=== PATIENT | male | born 1990 | race African-American/Black ===

== ENCOUNTER 2018-01-08 16:56 | Emergency (ER) | payer OTHER ==
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
[2018-01-08 17:37] VITALS: TEMP 98.9; BMI 20.3
[2018-01-08 17:51] LABS: BASO % 0.6 % (0-2.0); EOS % 1.1 % (0-4.5); HEMATOCRIT 40.5 % (35.4-49); HEMOGLOBIN 12.9 GM/dL (11.7-16.9); LYMPH % 11.4 % (8-40); MCH 22.3 pg (25.7-33.7); MCHC 31.8 g/dl (32.0-35.9); MEAN CELL VOLUME 70.1 fl (80-96); MEAN PLT VOLUME 8.6 fl (7.5-11.1); MONO % 7.2 % (3.8-10.2); NEUT % 79.7 % (42.8-82.8); RBC 5.78 M/mm3 (4.00-5.60); RDW 15.2 % (11.9-15.9); WHITE BLOOD COUNT 9.2 K/mm3 (4.0-10.0)
[2018-01-08 18:08] LABS: URINE APPEARANCE CLOUDY; URINE BILIRUBIN NEGATIVE (<2.0 mg/dL); URINE BLOOD NEGATIVE (NEGATIVE); URINE COLOR AMBER; URINE GLUCOSE (UA) NEGATIVE (NEGATIVE); URINE KETONE TRACE (NEGATIVE); URINE NITRITE NEGATIVE (NEGATIVE); URINE PROTEIN NEGATIVE (NEGATIVE); URINE UROBILINOGEN 4.0 E.U/dl mg/dL (0.2-1.0)
[2018-01-08 18:15] LABS: URINE LEUK ESTERASE 2+ (NEGATIVE)
[2018-01-08 18:16] LABS: EPI CELLS RARE /HPF (FEW); URINE BACTERIA MANY /hpf (NONE SEEN); URINE HYALINE CAST 2 /lpf; URINE MUCUS MODERATE
[2018-01-08 18:52] LABS: ALBUMIN 3.1 g/dl (3.4-5.0); ANION GAP 8 (8-16); BILIRUBIN,TOTAL 0.5 mg/dL (0.2-1.0); BLOOD UREA NITROGEN 9 mg/dL (7-18); CALCIUM 9.7 mg/dL (8.5-10.1); CHLORIDE 101 mmol/L (98-107); CO2 31 mmol/L (21-32); CREATININE 0.6 mg/dL (0.7-1.3); GLUCOSE,RANDOM 124 mg/dL (74-106); POTASSIUM 3.9 mmol/L (3.5-5.1); SGOT/AST 22 U/L (15-37); SGPT/ALT 18 U/L (12-78); SODIUM 140 mmol/L (136-145); TOT PROT 7.3 g/dl (6.4-8.2)
[2018-01-08 18:53] LABS: ALK PHOS 91 U/L (45-117)
[2018-01-08 19:23] LABS: PLATELET COUNT 344 K/MM3 (134-434); PLATELET ESTIMATE ADEQUATE
[2018-01-08] MEDS ORDERED: ONDANSETRON 4 MG/2 ML VIAL IVPUSH ONE (19:25)
[2018-01-08] MEDS ORDERED: SODIUM CHLORIDE 0.9% 1000 ML INFUS.BAG IV ONE (19:25)
[2018-01-08] MEDS ORDERED: ONDANSETRON 4 MG/2 ML VIAL ONE (19:37)
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
--- NOTE | 2018-01-08 20:21 | PDOC ---
*Physical Exam - Vital Signs Last Vital Signs Temp Pulse Resp BP Pulse Ox 98.9 F 103 H 18 114/74 98 01/08/18 17:00 01/08/18 17:00 01/08/18 17:00 01/08/18 17:00 01/08/18 18:19 - Physical Exam General Appearance: Yes: Nourished, Appropriately Dressed Neck: positive: Trachea midline, Supple Respiratory/Chest: positive: Lungs Clear Cardiovascular: positive: S1, S2 Vascular Pulses: Dorsalis-Pedis (R): 2+, Doralis-Pedis (L): 2+ Extremity: positive: Other (R medial patellar swelling, warm, no appreciable erythema) Neurologic: positive: Fully Oriented, Alert ED Treatment Course - LABORATORY CBC & Chemistry Diagram: 01/08/18 17:40 01/08/18 18:11 - ADDITIONAL ORDERS Additional order review: Laboratory Results 01/08/18 01/08/18 01/08/18 18:11 18:10 17:43 Sodium 140 Potassium 3.9 Chloride 101 Carbon Dioxide 31 Anion Gap 8 BUN 9 Creatinine 0.6 L Creat Clearance w eGFR > 60 Random Glucose 124 H Calcium 9.7 Total Bilirubin 0.5 AST 22 ALT 18 Alkaline Phosphatase 91 C-Reactive Protein Cancelled Total Protein 7.3 Albumin 3.1 L Urine Color Jyoti Urine Appearance Cloudy Urine pH 7.0 Ur Specific [place] 1.021 Urine Protein Negative Urine Glucose (UA) Negative Urine Ketones Trace H Urine Blood Negative Urine Nitrite Negative Urine Bilirubin Negative Urine Urobilinogen 4.0 e.u/dl Ur Leukocyte Esterase 2+ H Urine WBC (Auto) 82 Urine RBC (Auto) 5 Ur Epithelial Cells Rare Urine Bacteria Many Hyaline Casts 2 Urine Mucus Moderate 01/08/18 17:40 Sodium Cancelled Potassium Cancelled Chloride Cancelled Carbon Dioxide Cancelled Anion Gap Cancelled BUN Cancelled Creatinine Cancelled Creat Clearance w eGFR Cancelled Random Glucose Cancelled Calcium Cancelled Total Bilirubin Cancelled AST Cancelled ALT Cancelled Alkaline Phosphatase Cancelled C-Reactive Protein Total Protein Cancelled Albumin Cancelled Urine Color Urine Appearance Urine pH Ur Specific [place] Urine Protein Urine Glucose (UA) Urine Ketones Urine Blood Urine Nitrite Urine Bilirubin Urine Urobilinogen Ur Leukocyte Esterase Urine WBC (Auto) Urine RBC (Auto) Ur Epithelial Cells Urine Bacteria Hyaline Casts Urine Mucus 01/08/18 17:40 RBC 5.78 H MCV 70.1 L MCHC 31.8 L RDW 15.2 MPV 8.6 Neutrophils % 79.7 Lymphocytes % 11.4 Monocytes % 7.2 Eosinophils % 1.1 Basophils % 0.6 - Medications Given in the ED: ED Medications Discontinued Medications Generic Name Dose Route Start Last Admin Trade Name Brettq PRN Reason Stop Dose Admin Ondansetron HCl 4 mg 01/08/18 19:25 01/08/18 20:02 Zofran Injection IVPUSH 01/08/18 19:26 4 mg ONCE ONE Administration Sodium Chloride 1,000 ml 01/08/18 19:25 01/08/18 20:02 Normal Saline - IV 01/08/18 19:26 1,000 ml ONCE ONE Administration Medical Decision Making - Medical Decision Making 01/08/18 20:21 Patient signed out by Dr. Wilkerson (Resident) under the care of Dr. Rico ( Attending) 27 year old male presents with R knee pain. XR shows no fluid collection; prominent soft tissue --> less likely, will plan for D/C w/ PO Abx pending Doppler r/o clot. 01/08/18 20:25 UA shows Leukocyte Esterase (2+) and WBC (82) -- patient unable to endorse symptoms 2/2 to paraplegia -- cross coverage of UTI with cellulitis abx 01/08/18 21:49 Patient resting comfortably. Negative Doppler. Will discharge home with Bactrim + Keflex following OTD in ED. Patient counseled on POC and discharged with return precautions and PMD follow-up. I discussed the physical exam findings, ancillary test results and final diagnoses with the patient. I answered all of the patient's questions. The patient was satisfied with the care received and felt comfortable with the discharge plan and treatment plan. The patient will return to the Emergency Department with any new, persistent or worsening symptoms. *DC/Admit/Observation/Transfer Diagnosis at time of Disposition: Cellulitis - Discharge Dispostion Disposition: HOME Condition at time of disposition: Good - Prescriptions Prescriptions: Cephalexin Monohydrate [Keflex -] 500 mg PO Q6H #40 capsule Sulfamethoxazole/Trimethoprim [Bactrim Ds Tablet] 2 each PO BID #40 tablet - Referrals Referrals: Truman Poe MD [Primary Care Provider] - Leobardo Caldwell MD [Staff Physician] - - Patient Instructions Additional Instructions: An antibiotic has been called to your pharmacy. Please take the entire prescribed course. Follow up with your primary care doctor in the next 48 hours as well as orthopedic surgery (contact information provided) in the next 2 -3 days. Return to the Emergency Department for any new/worsening/concerning symptoms. - Post Discharge Activity
[2018-01-08 20:49] VITALS: BP 117/73; PULSE 82
[2018-01-08] MEDS ORDERED: SULFAMETHOXAZOLE/TRIMETHOPRIM 800MG/160MG D.S. TABLET PO ONE (21:32)
[2018-01-08] MEDS ORDERED: CEPHALEXIN MONOHYDRATE 500 MG CAPSULE (UD) PO ONE (21:32)
[2018-01-08] MEDS ORDERED: SULFAMETHOXAZOLE/TRIMETHOPRIM 800MG/160MG D.S. TABLET ONE (21:39)
[2018-01-08] MEDS ORDERED: CEPHALEXIN MONOHYDRATE 250 MG CAPSULE (FP) ONE (21:40)
== END 2018-01-09 00:40 | disposition home or self-care (01) ==
LOC: JER 16:56
PROC: 3E033GC Introduction of Other Therapeutic Substance into Peripheral Vein, Percutaneous Approach (ICD-10-PCS; principal; 2018-01-08)
PROC: 3E0337Z Introduction of Electrolytic and Water Balance Substance into Peripheral Vein, Percutaneous Approach (ICD-10-PCS; 2018-01-08)
DX: M25.561 Pain in right knee (principal); G82.20 Paraplegia, unspecified
CPT/HCPCS: 36415; 73562-TC-RT-FY; 80053; 81003; 81015; 85025; 85651; 93971-TC; 99285-25; J7030

== ENCOUNTER 2018-02-10 18:50 | Emergency (ER) | payer OTHER ==
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
[2018-02-10 19:42] VITALS: BP 123/83; PULSE 80; TEMP 97.5; BMI 25.0
[2018-02-10 20:13] LABS: BASO % 1.1 % (0-2.0); EOS % 3.5 % (0-4.5); HEMOGLOBIN 11.6 GM/dL (11.7-16.9); LYMPH % 30.9 % (8-40); MCH 22.7 pg (25.7-33.7); MCHC 32.1 g/dl (32.0-35.9); MEAN CELL VOLUME 70.8 fl (80-96); MEAN PLT VOLUME 8.4 fl (7.5-11.1); MONO % 10.9 % (3.8-10.2); NEUT % 53.6 % (42.8-82.8); PLATELET COUNT 253 K/MM3 (134-434); RBC 5.09 M/mm3 (4.00-5.60); RDW 16.9 % (11.9-15.9); WHITE BLOOD COUNT 4.7 K/mm3 (4.0-10.0)
[2018-02-10 20:49] LABS: ALK PHOS 81 U/L (45-117); ANION GAP 3 (8-16); BILIRUBIN,TOTAL 0.3 mg/dL (0.2-1.0); BLOOD UREA NITROGEN 5 mg/dL (7-18); CHLORIDE 107 mmol/L (98-107); CO2 35 mmol/L (21-32); CREATININE 0.4 mg/dL (0.7-1.3); GLUCOSE,RANDOM 75 mg/dL (74-106); POTASSIUM 3.4 mmol/L (3.5-5.1); SGOT/AST 10 U/L (15-37); SGPT/ALT 8 U/L (12-78); SODIUM 145 mmol/L (136-145); TOT PROT 6.3 g/dl (6.4-8.2)
== END 2018-02-11 01:11 | disposition home or self-care (01) ==
LOC: JER 18:50
DX: B35.3 Tinea pedis (principal); S24.152A Other incomplete lesion at T2-T6 level of thoracic spinal cord, initial encounter; G82.21 Paraplegia, complete; Y24.8XXA Other firearm discharge, undetermined intent, initial encounter; Y93.89 Activity, other specified; Y92.89 Other specified places as the place of occurrence of the external cause; Y99.8 Other external cause status; Z99.3 Dependence on wheelchair
CPT/HCPCS: 36415; 73610-TC-RT-FY; 73630-TC-RT-FY; 80053; 85025; 93971-TC; 99282-25

== ENCOUNTER 2018-02-25 16:36 | Inpatient (IN) | payer OTHER ==
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
[2018-02-25 17:26] LABS: BASO % 0.8 % (0-2.0); EOS % 2.1 % (0-4.5); HEMATOCRIT 40.9 % (35.4-49); HEMOGLOBIN 12.8 GM/dL (11.7-16.9); LYMPH % 27.2 % (8-40); MCH 22.2 pg (25.7-33.7); MCHC 31.2 g/dl (32.0-35.9); MEAN PLT VOLUME 9.3 fl (7.5-11.1); MONO % 7.8 % (3.8-10.2); NEUT % 62.1 % (42.8-82.8); PLATELET COUNT 280 K/MM3 (134-434); RBC 5.76 M/mm3 (4.00-5.60); RDW 18.3 % (11.9-15.9); WHITE BLOOD COUNT 5.8 K/mm3 (4.0-10.0)
[2018-02-25 17:44] LABS: INR 1.11 (0.82-1.09); PROTHROMBIN TIME (PATIENT) 12.5 SEC (9.7-13.0)
[2018-02-25 17:56] LABS: ANION GAP 7 (8-16); BLOOD UREA NITROGEN 4 mg/dL (7-18); CHLORIDE 103 mmol/L (98-107); CO2 33 mmol/L (21-32); GLUCOSE,RANDOM 77 mg/dL (74-106); POTASSIUM 3.3 mmol/L (3.5-5.1); SODIUM 143 mmol/L (136-145)
[2018-02-25 17:59] LABS: ALK PHOS 101 U/L (45-117); BILIRUBIN,TOTAL 1.4 mg/dL (0.2-1.0); CREATININE 0.6 mg/dL (0.7-1.3); SGOT/AST 10 U/L (15-37); SGPT/ALT 10 U/L (12-78); TOT PROT 7.8 g/dl (6.4-8.2)
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
[2018-02-25 19:34] LABS: URINE APPEARANCE CLOUDY; URINE BILIRUBIN NEGATIVE (<2.0 mg/dL); URINE BLOOD NEGATIVE (NEGATIVE); URINE COLOR AMBER; URINE GLUCOSE (UA) NEGATIVE (NEGATIVE); URINE KETONE NEGATIVE (NEGATIVE); URINE NITRITE NEGATIVE (NEGATIVE); URINE PROTEIN NEGATIVE (NEGATIVE)
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
[2018-02-25 19:50] LABS: URINE LEUK ESTERASE 3+ (NEGATIVE)
[2018-02-25 19:56] LABS: EPI CELLS RARE /HPF (FEW); URINE BACTERIA RARE /hpf (NONE SEEN); URINE MUCUS MANY
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
[2018-02-25 21:52] LABS: URINE APPEARANCE SLCLOUDY; URINE BILIRUBIN NEGATIVE (<2.0 mg/dL); URINE BLOOD NEGATIVE (NEGATIVE); URINE COLOR DKYELLOW; URINE GLUCOSE (UA) NEGATIVE (NEGATIVE); URINE KETONE NEGATIVE (NEGATIVE); URINE LEUK ESTERASE 1+ (NEGATIVE); URINE NITRITE POSITIVE (NEGATIVE); URINE PROTEIN NEGATIVE (NEGATIVE)
[2018-02-25 21:55] LABS: URINE MUCUS RARE
[2018-02-25] MEDS: HEPARIN NA (PORCINE) 5,000 UNITS/ML 1ML VIAL SQ SCH (22:16)
[2018-02-25] MEDS ORDERED: POTASSIUM CHLORIDE ORAL LIQUID 20 MEQ/15 ML PO ONE (22:46)
[2018-02-26] MEDS ORDERED: POTASSIUM CHLORIDE ORAL LIQUID 20 MEQ/15 ML ONE (00:01)
[2018-02-26] MEDS: HEPARIN NA (PORCINE) 5,000 UNITS/ML 1ML VIAL SQ SCH ×3 (08:43→21:29)
[2018-02-26 08:59] LABS: EOS % 3.9 % (0-4.5); HEMATOCRIT 36.6 % (35.4-49); HEMOGLOBIN 11.5 GM/dL (11.7-16.9); LYMPH % 32.2 % (8-40); MCH 22.2 pg (25.7-33.7); MCHC 31.3 g/dl (32.0-35.9); MEAN PLT VOLUME 9.2 fl (7.5-11.1); MONO % 10.4 % (3.8-10.2); NEUT % 52.5 % (42.8-82.8); PLATELET COUNT 234 K/MM3 (134-434); RBC 5.16 M/mm3 (4.00-5.60); RDW 17.8 % (11.9-15.9); WHITE BLOOD COUNT 4.4 K/mm3 (4.0-10.0)
[2018-02-26 09:28] LABS: ALBUMIN 3.4 g/dl (3.4-5.0); ANION GAP 8 (8-16); BLOOD UREA NITROGEN 5 mg/dL (7-18); CALCIUM 9.5 mg/dL (8.5-10.1); CHLORIDE 107 mmol/L (98-107); CO2 29 mmol/L (21-32); GLUCOSE,RANDOM 77 mg/dL (74-106); PHOSPHOROUS 3.2 mg/dL (2.5-4.9); POTASSIUM 3.6 mmol/L (3.5-5.1); SGOT/AST 9 U/L (15-37); SGPT/ALT 8 U/L (12-78); SODIUM 144 mmol/L (136-145)
[2018-02-26 09:30] LABS: ALK PHOS 84 U/L (45-117); BILIRUBIN,TOTAL 0.9 mg/dL (0.2-1.0); CREATININE 0.6 mg/dL (0.7-1.3); TOT PROT 6.7 g/dl (6.4-8.2)
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
--- NOTE | 2018-02-26 14:28 | EKG ---
Test Reason : Blood Pressure : / mmHG Vent. Rate : 062 BPM Atrial Rate : 062 BPM P-R Int : 142 ms QRS Dur : 088 ms QT Int : 438 ms P-R-T Axes : 067 018 025 degrees QTc Int : 444 ms POOR DATA QUALITY, INTERPRETATION MAY BE ADVERSELY AFFECTED NORMAL SINUS RHYTHM NORMAL ECG NO PREVIOUS ECGS AVAILABLE Confirmed by JANNETTE WHITE MD ([id number]) on 02/26/2018 2:27:59 PM Referred By: Confirmed By:JANNETTE WHITE MD
[2018-02-26 14:37] LABS: MAGNESIUM 2.3 mg/dL (1.8-2.4)
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
[2018-02-26 17:43] VITALS: BMI 25.0
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
[2018-02-27] MEDS: HEPARIN NA (PORCINE) 5,000 UNITS/ML 1ML VIAL SQ SCH ×3 (05:18→23:08)
--- NOTE | 2018-02-27 11:24 | PN ---
Progress Note, Physician Chief Complaint: positive distress right foot - Current Medication List Current Medications: Active Medications Heparin Sodium (Porcine) (Heparin -) 5,000 unit SQ TID [facility] Last Admin: 02/27/18 05:18 Dose: Not Given - Objective Vital Signs: Vital Signs Temperature 98.3 F 02/27/18 07:00 Pulse Rate 61 02/27/18 07:00 Respiratory Rate 20 02/27/18 07:00 Blood Pressure 147/72 02/27/18 07:00 O2 Sat by Pulse Oximetry (%) 99 02/26/18 21:00 Constitutional: Yes: Mild Distress Eyes: Yes: WNL HENT: Yes: WNL Neck: Yes: WNL Cardiovascular: Yes: WNL Respiratory: Yes: WNL Gastrointestinal: Yes: WNL Genitourinary: Yes: WNL Musculoskeletal: Yes: Muscle Weakness Extremities: Yes: Deformity Edema: No Integumentary: Yes: Erythema, Other Wound/Incision: Yes: Open to air (right toes nectrotic black) Neurological: Yes: Pre-Existing Deficit Psychiatric: Yes: WNL Labs: CBC, BMP 02/26/18 08:46 02/26/18 08:46 INR, PTT INR 1.11 (0.82-1.09) 02/25/18 17:12 Problem List - Problems (1) Electrolyte abnormality Code(s): E87.8 - OTH DISORDERS OF ELECTROLYTE AND FLUID BALANCE, NEC (2) Gangrene of toe Code(s): I96 - GANGRENE, NOT ELSEWHERE CLASSIFIED (3) Paraplegia Code(s): G82.20 - PARAPLEGIA, UNSPECIFIED (4) UTI (urinary tract infection) Code(s): N39.0 - URINARY TRACT INFECTION, SITE NOT SPECIFIED (5) Cellulitis Code(s): L03.90 - CELLULITIS, UNSPECIFIED Assessment/Plan abx per id podiatry and vasc sx eval dvt prophylaxis
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
[2018-02-27] MEDS ORDERED: AMMONIUM LACTATE 12% LOTION 225 GM BOTTLE TP PRN (13:00)
[2018-02-28] MEDS: SODIUM PHOSPHATE/NA BIPHOS 133 ML ENEMA PR ONE ×2 (00:33→00:47)
[2018-02-28 06:08] LABS: SERUM IRON SATURATION 25 % (15-55); TOTAL IRON BINDING CAPACITY 206 ug/dL (250-450); UIBC 155 ug/dL (111-343)
[2018-02-28] MEDS: HEPARIN NA (PORCINE) 5,000 UNITS/ML 1ML VIAL SQ SCH ×3 (06:41→22:26)
--- NOTE | 2018-02-28 10:16 | PN ---
Progress Note, Physician Chief Complaint: NOTES FROM ODIATRY REVIEWED SCHEDULING AMPUTATION RIGHT NECROTIC TOES PATIENT AWAKE ALERT NAD - Current Medication List Current Medications: Active Medications Heparin Sodium (Porcine) (Heparin -) 5,000 unit SQ TID [facility] Last Admin: 02/28/18 06:41 Dose: Not Given Lactic Acid (Lac-Hydrin 12) 1 applic TP BID PRN PRN Reason: xerosis - Objective Vital Signs: Vital Signs Temperature 97.6 F 02/28/18 09:39 Pulse Rate 65 02/28/18 09:39 Respiratory Rate 18 02/28/18 09:39 Blood Pressure 120/68 02/28/18 09:39 O2 Sat by Pulse Oximetry (%) 99 02/27/18 21:00 Constitutional: Yes: No Distress Eyes: Yes: WNL HENT: Yes: WNL Neck: Yes: WNL Cardiovascular: Yes: WNL Respiratory: Yes: WNL Gastrointestinal: Yes: WNL Genitourinary: Yes: WNL Musculoskeletal: Yes: Muscle Weakness Extremities: Yes: Deformity Edema: No Peripheral Pulses WNL: Yes Integumentary: Yes: Other Wound/Incision: Yes: Other (NECROTOC RIGHT TOES) Neurological: Yes: Loss of Sensation, Pre-Existing Deficit, Weakness Psychiatric: Yes: WNL Labs: CBC, BMP 02/26/18 08:46 02/26/18 08:46 INR, PTT INR 1.11 (0.82-1.09) 02/25/18 17:12 Problem List - Problems (1) Electrolyte abnormality Code(s): E87.8 - OTH DISORDERS OF ELECTROLYTE AND FLUID BALANCE, NEC (2) Gangrene of toe Code(s): I96 - GANGRENE, NOT ELSEWHERE CLASSIFIED (3) Paraplegia Code(s): G82.20 - PARAPLEGIA, UNSPECIFIED (4) UTI (urinary tract infection) Code(s): N39.0 - URINARY TRACT INFECTION, SITE NOT SPECIFIED (5) Cellulitis Code(s): L03.90 - CELLULITIS, UNSPECIFIED Assessment/Plan PODIATRY SCHEDULING AMPUTATION PAIN CONTROL MEDICALLY CLEARED FOR AMPUTATION RIGHT5 NECROTIC TOES HEPARIN
--- NOTE | 2018-02-28 10:33 | PN ---
Progress Note (short form) - Note Progress Note: Patient seen in bed. VSS. Awaiting bone scan. +gangarene toes 3,4,5 right, +unimproved, +demarcating, +dry, wbc=4.4 gangarene Will shedule for Saturday AM procedure. Patient cleared from Medicine and Vascular standpoint. Will follow. Awaiting bone scan. crp=0.5, esr wnl
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
--- NOTE | 2018-02-28 16:50 | PN ---
Progress Note (short form) - Note Progress Note: Vascular Surgery Pt seen and examined. Pt with RLE necrotic 4th and 5th toes. Pt with palpable DP pulse. Cleared from a vascular standpoint for podiatry intervention. Osei caal DO
[2018-03-01] MEDS: HEPARIN NA (PORCINE) 5,000 UNITS/ML 1ML VIAL SQ SCH ×3 (06:50→21:40)
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
[2018-03-02] MEDS: HEPARIN NA (PORCINE) 5,000 UNITS/ML 1ML VIAL SQ SCH ×3 (05:37→21:54)
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
[2018-03-03] MEDS: HEPARIN NA (PORCINE) 5,000 UNITS/ML 1ML VIAL SQ SCH ×3 (05:39→21:55)
[2018-03-03 07:28] LABS: BASO % 1.6 % (0-2.0); EOS % 4.2 % (0-4.5); HEMATOCRIT 38.7 % (35.4-49); LYMPH % 36.8 % (8-40); MCH 22.2 pg (25.7-33.7); MEAN CELL VOLUME 71.4 fl (80-96); MEAN PLT VOLUME 9.3 fl (7.5-11.1); MONO % 9.1 % (3.8-10.2); NEUT % 48.3 % (42.8-82.8); PLATELET COUNT 209 K/MM3 (134-434); RBC 5.41 M/mm3 (4.00-5.60); RDW 17.8 % (11.9-15.9); WHITE BLOOD COUNT 4.6 K/mm3 (4.0-10.0)
[2018-03-03 07:40] LABS: ALBUMIN 3.7 g/dl (3.4-5.0); ALK PHOS 77 U/L (45-117); ANION GAP 6 (8-16); BILIRUBIN,TOTAL 0.6 mg/dL (0.2-1.0); BLOOD UREA NITROGEN 9 mg/dL (7-18); CALCIUM 9.1 mg/dL (8.5-10.1); CHLORIDE 104 mmol/L (98-107); CO2 29 mmol/L (21-32); CREATININE 0.6 mg/dL (0.7-1.3); GLUCOSE,RANDOM 72 mg/dL (74-106); MAGNESIUM 2.3 mg/dL (1.8-2.4); PHOSPHOROUS 3.1 mg/dL (2.5-4.9); POTASSIUM 3.4 mmol/L (3.5-5.1); SGOT/AST 9 U/L (15-37); SGPT/ALT 9 U/L (12-78); SODIUM 139 mmol/L (136-145)
--- NOTE | 2018-03-03 11:02 | PN ---
Progress Note, Physician Chief Complaint: NOTES FROM PODIATRY REVIEWED SCHEDULING AMPUTATION RIGHT NECROTIC TOES PATIENT AWAKE ALERT NAD - Current Medication List Current Medications: Active Medications Heparin Sodium (Porcine) (Heparin -) 5,000 unit SQ TID [facility] Last Admin: 03/03/18 05:39 Dose: Not Given Lactic Acid (Lac-Hydrin 12) 1 applic TP BID PRN PRN Reason: xerosis - Objective Vital Signs: Vital Signs Temperature 97.5 F L 03/03/18 09:44 Pulse Rate 62 03/03/18 09:44 Respiratory Rate 20 03/03/18 09:44 Blood Pressure 129/78 03/03/18 09:44 O2 Sat by Pulse Oximetry (%) 99 03/02/18 21:00 Constitutional: Yes: No Distress Eyes: Yes: WNL HENT: Yes: WNL Neck: Yes: WNL Cardiovascular: Yes: WNL Respiratory: Yes: WNL Gastrointestinal: Yes: WNL Genitourinary: Yes: Incontinence Musculoskeletal: Yes: Muscle Weakness Extremities: Yes: Deformity, Other Edema: No Peripheral Pulses WNL: Yes Integumentary: Yes: Other Wound/Incision: Yes: Open to air, Excoriated (NECROTIC TOES) Neurological: Yes: Pre-Existing Deficit ...Motor Strength: RLE Psychiatric: Yes: WNL Labs: CBC, BMP 03/03/18 06:55 03/03/18 06:55 INR, PTT INR 1.11 (0.82-1.09) 02/25/18 17:12 Problem List - Problems (1) Electrolyte abnormality Code(s): E87.8 - OTH DISORDERS OF ELECTROLYTE AND FLUID BALANCE, NEC (2) Gangrene of toe Code(s): I96 - GANGRENE, NOT ELSEWHERE CLASSIFIED (3) Paraplegia Code(s): G82.20 - PARAPLEGIA, UNSPECIFIED (4) UTI (urinary tract infection) Code(s): N39.0 - URINARY TRACT INFECTION, SITE NOT SPECIFIED (5) Cellulitis Code(s): L03.90 - CELLULITIS, UNSPECIFIED Assessment/Plan PODIATRY SCHEDULING AMPUTATION PAIN CONTROL MEDICALLY CLEARED FOR AMPUTATION RIGHT5 NECROTIC TOES HEPARIN IV
[2018-03-03] MEDS ORDERED: POTASSIUM CHLORIDE TABS 10 MEQ TABLET.ER (FP) PO ONE (11:15)
--- NOTE | 2018-03-03 11:29 | PN ---
Progress Note (short form) - Note Progress Note: Patient seen in bed. VSS. Bone scan done. No new complaints. +gangarene toes 3,4,5 right, +unimproved, +demarcating, +dry, Bone scan possible om 5th met head gangarene om? Ordered consent for bedridement of bone and soft tissue with posssible amputation toes 3,4,5 left. Will consider 5th met head resection if appears to be infected intra-op. Patent fully understands all risks benefits and alternatives. Patient had no questions. All previous questions have been answered. Patient agress to proposed procedure. NPO after midnight. Will follow. Read and appreciated Bone scan. Patient cleared by vascular and medicine for intervention.
[2018-03-04] MEDS ORDERED: DEXAMETHASONE SOD PHOSPHATE 4 MG/1 ML VIAL ONE (10:20)
[2018-03-04] MEDS ORDERED: BUPIVACAINE HCL/PF 0.5% (5MG/ML) 10 ML VIAL ONE (10:20)
[2018-03-04] MEDS ORDERED: LIDOCAINE HCL 1%, 10 MG/ML (20ML VIAL) ONE (10:20)
[2018-03-04] MEDS ORDERED: MIDAZOLAM HCL 2 MG/2 ML SINGLE DOSE VIAL ONE ×3 (10:32→11:05)
[2018-03-04] MEDS ORDERED: ceFAZolin SODIUM 1 GM VIAL IVPB ONE ×2 (10:49)
[2018-03-04] MEDS ORDERED: LIDOCAINE HCL 1%, 10 MG/ML (20ML VIAL) NR ONE (10:56)
[2018-03-04] MEDS ORDERED: BUPIVACAINE HCL/PF (5 MG/ML) 30 ML VIAL IJ ONE (10:56)
[2018-03-04] MEDS ORDERED: BACITRACIN 50,000 UNITS VIAL TP ONE (11:15)
[2018-03-04] MEDS ORDERED: BUPIVACAINE HCL/PF 0.5% (5MG/ML) 10 ML VIAL IJ ONE (11:40)
--- NOTE | 2018-03-04 11:51 | OP ---
Operative Note - Note: Operative Date: 03/04/18 Pre-Operative Diagnosis: Gangarent toes 3,4,5 right Operation: debridement bone and soft tissue with amputation 3,4,5 right Findings: gangarene Post-Operative Diagnosis: Same as Pre-op Surgeon: Johnny Valdes Anesthesia: JOHN Specimens Removed: bone and soft tissue Estimated Blood Loss (mls): 10 (ml) Instrument used (Debridements only): scalpel, bone cutter Drains & Tubes with Location: 10/10" plain packing Operative Report Dictated: Yes
[2018-03-04] MEDS ORDERED: ONDANSETRON 4 MG/2 ML VIAL IVPUSH PRN (12:01)
[2018-03-04] MEDS ORDERED: PROMETHAZINE HCL 25 MG/1 ML VIAL IVPB PRN (12:01)
[2018-03-04] MEDS: LACTATED RINGERS SOLUTION 1,000 ML IV SCH (12:20)
[2018-03-04] MEDS: HEPARIN NA (PORCINE) 5,000 UNITS/ML 1ML VIAL SQ SCH ×2 (13:59→22:40)
--- NOTE | 2018-03-04 16:21 | PN ---
Progress Note, Physician Chief Complaint: AWAKE ALERT S/P RIGHT FOOT TOES AMPUTATIONS TOLERATED WELL - Current Medication List Current Medications: Active Medications Fentanyl (Sublimaze Injection -) 25 mcg IVPUSH [id number] PRN PRN Reason: PAIN-PACU ORDER X 4 DOSES ONLY Heparin Sodium (Porcine) (Heparin -) 5,000 unit SQ TID [facility] Last Admin: 03/04/18 13:59 Dose: Not Given Lactated Ringer's (Lactated Ringers Solution) 1,000 mls @ 75 mls/hr IV ASDIR [facility] Ondansetron HCl (Zofran Injection) 4 mg IVPUSH Q6H PRN PRN Reason: NAUSEA AND/OR VOMITING Oxycodone HCl (Roxicodone -) 5 mg PO Q4H PRN PRN Reason: PAIN LEVEL 1-5 Stop: 03/05/18 12:00 Promethazine HCl (Phenergan Injection -) 12.5 mg IVPB Q6H PRN PRN Reason: NAUSEA-FOR RESCUE AFTER 15 MIN - Objective Vital Signs: Vital Signs Temperature 98.1 F 03/04/18 12:40 Pulse Rate 68 03/04/18 13:00 Respiratory Rate 18 03/04/18 13:00 Blood Pressure 114/74 03/04/18 13:00 O2 Sat by Pulse Oximetry (%) 96 03/04/18 13:00 Constitutional: Yes: Mild Distress Eyes: Yes: WNL HENT: Yes: WNL Neck: Yes: WNL Cardiovascular: Yes: WNL Respiratory: Yes: WNL Gastrointestinal: Yes: WNL Genitourinary: Yes: Incontinence Musculoskeletal: Yes: Muscle Weakness Extremities: Yes: Amputation Edema: No Peripheral Pulses WNL: Yes Wound/Incision: Yes: Dressing Dry and Intact Neurological: Yes: Pre-Existing Deficit ...Motor Strength: RLE Labs: CBC, BMP 03/03/18 06:55 03/03/18 06:55 INR, PTT INR 1.11 (0.82-1.09) 02/25/18 17:12 Problem List - Problems (1) Electrolyte abnormality Code(s): E87.8 - OTH DISORDERS OF ELECTROLYTE AND FLUID BALANCE, NEC (2) Gangrene of toe Code(s): I96 - GANGRENE, NOT ELSEWHERE CLASSIFIED (3) Paraplegia Code(s): G82.20 - PARAPLEGIA, UNSPECIFIED (4) UTI (urinary tract infection) Code(s): N39.0 - URINARY TRACT INFECTION, SITE NOT SPECIFIED (5) Cellulitis Code(s): L03.90 - CELLULITIS, UNSPECIFIED Assessment/Plan S/P RIGHT TOES 2-4 AMPUTATIONS IV ABX PER ID DVT PROPHYLAXIS OOB TO CHAIR SNF?
[2018-03-05] MEDS: oxyCODONE HCL 5 MG TABLET PO PRN ×4 (01:11→18:40)
[2018-03-05] MEDS: LACTATED RINGERS SOLUTION 1,000 ML IV SCH ×3 (01:18→14:29)
[2018-03-05] MEDS: HEPARIN NA (PORCINE) 5,000 UNITS/ML 1ML VIAL SQ SCH ×3 (06:39→22:24)
--- NOTE | 2018-03-05 08:45 | PN ---
Progress Note (short form) - Note Progress Note: Patient seen in bed. POD#1. Mild pain. +clean, dry dressing s/p amputation toes 3,4,5 Labs today. Dressing change tomorrow. Anticipate DC from hospital on if stable medically. Will follow.
--- NOTE | 2018-03-05 10:06 | PN ---
Progress Note, Physician Chief Complaint: AWAKE ALERT D/W DR NUNO WILL NEED 3 MORE DAYS OF WOUND CARE PRIOR TO DISCHARGE - Current Medication List Current Medications: Active Medications Fentanyl (Sublimaze Injection -) 25 mcg IVPUSH [id number] PRN PRN Reason: PAIN-PACU ORDER X 4 DOSES ONLY Heparin Sodium (Porcine) (Heparin -) 5,000 unit SQ TID [facility] Last Admin: 03/05/18 06:39 Dose: 5,000 unit Lactated Ringer's (Lactated Ringers Solution) 1,000 mls @ 75 mls/hr IV ASDIR [facility] Last Admin: 03/05/18 01:18 Dose: 75 mls/hr Ondansetron HCl (Zofran Injection) 4 mg IVPUSH Q6H PRN PRN Reason: NAUSEA AND/OR VOMITING Oxycodone HCl (Roxicodone -) 5 mg PO Q4H PRN PRN Reason: PAIN LEVEL 1-5 Stop: 03/05/18 12:00 Last Admin: 03/05/18 07:18 Dose: 5 mg Promethazine HCl (Phenergan Injection -) 12.5 mg IVPB Q6H PRN PRN Reason: NAUSEA-FOR RESCUE AFTER 15 MIN - Objective Vital Signs: Vital Signs Temperature 98.2 F 03/05/18 07:00 Pulse Rate 64 03/05/18 07:00 Respiratory Rate 18 03/05/18 07:00 Blood Pressure 126/78 03/05/18 07:00 O2 Sat by Pulse Oximetry (%) 100 03/04/18 21:00 Constitutional: Yes: No Distress Eyes: Yes: WNL HENT: Yes: WNL Neck: Yes: WNL Cardiovascular: Yes: WNL Respiratory: Yes: WNL Gastrointestinal: Yes: WNL Genitourinary: Yes: WNL Musculoskeletal: Yes: Muscle Weakness Extremities: Yes: Deformity, Other Edema: No Peripheral Pulses WNL: Yes Integumentary: Yes: Other Wound/Incision: Yes: Dressing Dry and Intact Neurological: Yes: Loss of Sensation, Pre-Existing Deficit ...Motor Strength: LLE, RLE Psychiatric: Yes: Other Labs: CBC, BMP 03/03/18 06:55 03/03/18 06:55 INR, PTT INR 1.11 (0.82-1.09) 02/25/18 17:12 Problem List - Problems (1) Electrolyte abnormality Code(s): E87.8 - OTH DISORDERS OF ELECTROLYTE AND FLUID BALANCE, NEC (2) Gangrene of toe Code(s): I96 - GANGRENE, NOT ELSEWHERE CLASSIFIED (3) Paraplegia Code(s): G82.20 - PARAPLEGIA, UNSPECIFIED (4) UTI (urinary tract infection) Code(s): N39.0 - URINARY TRACT INFECTION, SITE NOT SPECIFIED (5) Cellulitis Code(s): L03.90 - CELLULITIS, UNSPECIFIED Assessment/Plan S/P RIGHT TOES 2-4 AMPUTATIONS IV ABX PER ID DVT PROPHYLAXIS OOB TO CHAIR WOUND CARE SNF?
[2018-03-05 10:56] LABS: BASO % 0.5 % (0-2.0); EOS % 1.3 % (0-4.5); HEMOGLOBIN 11.5 GM/dL (11.7-16.9); LYMPH % 26.6 % (8-40); MCH 22.2 pg (25.7-33.7); MCHC 31.1 g/dl (32.0-35.9); MEAN CELL VOLUME 71.2 fl (80-96); MEAN PLT VOLUME 9.5 fl (7.5-11.1); MONO % 13.7 % (3.8-10.2); NEUT % 57.9 % (42.8-82.8); PLATELET COUNT 156 K/MM3 (134-434); RBC 5.19 M/mm3 (4.00-5.60); RDW 17.6 % (11.9-15.9); WHITE BLOOD COUNT 3.7 K/mm3 (4.0-10.0)
[2018-03-05 11:14] LABS: CHLORIDE 105 mmol/L (98-107); POTASSIUM 3.5 mmol/L (3.5-5.1); SODIUM 140 mmol/L (136-145)
[2018-03-05 11:25] LABS: ANION GAP 5 (8-16); BLOOD UREA NITROGEN 4 mg/dL (7-18); CO2 30 mmol/L (21-32); CREATININE 0.6 mg/dL (0.7-1.3); GLUCOSE,RANDOM 111 mg/dL (74-106); MAGNESIUM 2.2 mg/dL (1.8-2.4)
[2018-03-05 13:03] LABS: ERYTHROCYTE SEDIMENTATION RATE 5 mm/hr (0-10)
[2018-03-06] MEDS: HEPARIN NA (PORCINE) 5,000 UNITS/ML 1ML VIAL SQ SCH ×2 (06:33→14:24)
[2018-03-06 07:30] VITALS: BP 132/82; PULSE 62; TEMP 97.2
--- NOTE | 2018-03-06 09:36 | PN ---
Progress Note (short form) - Note Progress Note: Patient seen in bed. POD#2. Mild pain. +clean, dry dressing, +packing intact, -drainage, -clinical signs of infection, retention sutures in place, wbc=3.7, esr=5 s/p amputation toes 3,4,5 right Packing pulled. Betadine dressing applied. Patient can be dc to home tomorow if medically clearaed. Patient to follow up in wound care clinic on Saturday. Will follow till DC.
[2018-03-06] MEDS: oxyCODONE HCL 5 MG TABLET PO PRN (10:31)
--- NOTE | 2018-03-06 11:23 | DS ---
Physical Examination Vital Signs: Vital Signs Temperature 97.2 F L 03/06/18 06:00 Pulse Rate 62 03/06/18 06:00 Respiratory Rate 18 03/06/18 06:00 Blood Pressure 132/82 03/06/18 06:00 O2 Sat by Pulse Oximetry (%) 100 03/05/18 21:00 Findings/Remarks: patient needs to leave today for an important meeting He has agreed to allow home care agency come help He also agrees to f/u with wound care at Saturday clinic at [place] [address] 9:30am Constitutional: Yes: No Distress Eyes: Yes: WNL HENT: Yes: WNL Neck: Yes: WNL Cardiovascular: Yes: WNL Respiratory: Yes: WNL Gastrointestinal: Yes: WNL Renal/: Yes: WNL Musculoskeletal: Yes: Other Extremities: Yes: Other Edema: No Integumentary: Yes: Other Wound/Incision: Yes: Dressing Dry and Intact Neurological: Yes: Pre-Existing Deficit ...Motor Strength: LLE, RLE Labs: CBC, BMP 03/05/18 10:00 03/05/18 10:00 Discharge Summary Reason For Visit: DRY GANGRENE/PARAPLEGIA AT T4 LEVEL Current Active Problems Electrolyte abnormality (Acute) Gangrene of toe (Acute) Paraplegia (Acute) UTI (urinary tract infection) (Acute) Procedures: Principal: right toe amputation Hospital Course: admitted with necrotic toes, amputation performed of right toes affected, wound care f/u with home care agency and wound clinic with dr valdes from podiatry Condition: Stable - Instructions Diet, Activity, Other Instructions: reg diet Wound care clinic Saturday 9:[address] Valdes [facility] Aid Disposition: VNS/HOME HEALTH CARE - Home Medications Comprehensive Discharge Medication List: Ambulatory Orders NK [No Known Home Medication] 02/25/18
[2018-03-06] MEDS: LACTATED RINGERS SOLUTION 1,000 ML IV SCH (12:20)
--- NOTE | 2018-03-06 16:17 | PATH ---
Surgical Pathology Report Patient Name: MARJ RAMIREZ [facility]. Rec. #: [id number] /Age/Gender: 1990 (Age: 27) / M Account: [id number] Location: [address] [place] [address]/[facility] Taken: 03/04/2018 Received: 03/04/2018 Reported: 03/06/2018 Physicians: ALEX Barrett M.D. Specimen(s) Received A: PROXIMAL BONE 5TH RIGHT TOE B: PROXIMAL BONE 4TH RIGHT TOE C: PROXIMAL BONE 3TH RIGHT TOE D: 3TH, 4TH, 5TH TOES RIGHT FOOT Clinical History Right foot dry gangrene, paraplegia at T4 level Final Diagnosis A. PROXIMAL BONE 5TH RIGHT TOE: BONE WITH FATTY MARROW, NEGATIVE FOR OSTEOMYELITIS. B. PROXIMAL BONE 4TH RIGHT TOE: BONE AND ADJACENT FIBROADIPOSE TISSUE WITH FATTY MARROW, NEGATIVE FOR OSTEOMYELITIS. C. PROXIMAL BONE 3TH RIGHT TOE: BONE WITH FATTY MARROW, NEGATIVE FOR OSTEOMYELITIS. D. 3RD, 4TH, 5TH TOES, RIGHT FOOT: AMPUTATED TOES SHOWING SKIN AND SOFT TISSUE NECROSIS. BONE, NEGATIVE FOR OSTEOMYELITIS. VIABLE SKIN AND SOFT TISSUE MARGINS WITH FOCAL EPIDEMRAL NECROSIS. Electronically Signed Morenita Guzman M.D. Gross Description A. Received in formalin labeled "proximal bone fifth toe, right" is a 2.0 x 1.3 x 1.0 cm portion of bone with smooth articular cartilage at one end and trabecular bone at the opposing end. Workflow Developer sections are submitted in 2 cassettes as follows: 1-end with smooth articular cartilage, following decalcification; 2-opposing end with trabecular bone, following decalcification. B. Received in formalin labeled "proximal bone fourth toe right," is a 1.4 x 1.3 x 0.9 cm portion of bone with smooth articular cartilage at one end and trabecular bone at the opposing end. Workflow Developer sections are submitted in 2 cassettes as follows: 1-end with smooth articular cartilage, following decalcification; 2-opposing end with trabecular bone, following decalcification. C. Received in formalin labeled "proximal third bone, right" is a 1.5 x 1.4 x 1.2 cm portion of bone with smooth articular cartilage at one end and trabecular bone at the opposing end. Workflow Developer sections are submitted in 2 cassettes as follows: 1-end with smooth articular cartilage, following decalcification; 2-opposing end with trabecular bone, following decalcification. D. Received in formalin labeled "third, fourth, fifth toes," are 3 undesignated toe amputation specimens ranging from 3.2 x 2.0 x 1.8 cm to 4.4 x 1.8 x 1.8 cm. The epidermal surfaces display black, gangrenous lesions which appear to involve the underlying bone. The lesions focally appear to involve the skin and soft tissue margins. Workflow Developer sections are submitted in 6 cassettes as follows: 1-skin, soft tissue and bone margin from longest digit, following decalcification; 2-lesion with underlying bone from longest digit, following decalcification; 3-skin, soft tissue and bone margin from medium digit, following decalcification; 4-lesion with underlying bone from medium digit, following decalcification; 5-skin, soft tissue and bone margin from shortest digit, following decalcification; 6-lesion with underlying bone from shortest digit, following decalcification. 03/05/2018 [facility]03/05/2018
--- NOTE | 2018-03-13 23:28 | OP ---
DATE OF OPERATION: 03/05/2018 PREOPERATIVE DIAGNOSIS: Right foot, dry gangrene of third, fourth, and fifth digits. POSTOPERATIVE DIAGNOSIS: Right foot, dry gangrene of third, fourth, and fifth digits. OPERATION: 1. Right foot third digit amputation. 2. Right foot fourth digit amputation. 3. Right foot fifth digit amputation. SURGEON: Johnny Valdes DPM WOVEN LABEL DESIGNER: Dr. Fabiano Claudio, [id number] ANESTHESIA: Local with IV sedation. HEMOSTASIS: Right pneumatic ankle tourniquet set at 250 mmHg. ESTIMATED BLOOD LOSS: 10 mL. MATERIALS: Iodoform packing, 3-0 nylon sutures. COMPLICATIONS: None. CONDITION: Stable. PATHOLOGY: Right foot bone and soft tissue. Right foot deep wound culture. DESCRIPTION: The patient was brought to the operating room and placed on the operating table in the supine position. Following IV sedation, local anesthesia to the right foot utilizing a 1:1 mixture of 15 mL 1% lidocaine plain and 0.5% Marcaine plain was given. The right foot was then scrubbed, prepped, and draped in the usual aseptic fashion. An Esmarch bandage was then utilized to exsanguinate the patient's right foot, and the tourniquet was inflated. Attention was then directed to the right foot 5th digit where there was dry gangrene noted. A number 15 blade was then used to make an incision down to the bone in a transverse fashion just proximal to the head of the proximal phalanx. Incision was then carried mediolaterally and plantarly encompassing the toe, leaving a large amount of the plantar skin intact. Next the middle and distal phalanxes were disarticulated at the interphalangeal joint and removed. The proximal phalanx of the toe was cut in half using a bone cutter and resected. Next the proximal remaining phalanx was sent to pathology. Next the 5th metatarsal head was evaluated and probed with the [place] elevator, it was noted to be white and hard. The proximal margin of the surgical site tissue and the 5th metatarsal head appeared healthy. Attention was then directed to the right foot 4th digit where there was dry gangrene noted. A number 15 blade was then used to make an incision down to bone in a transverse fashion just proximal to the head of the proximal phalanx. The incision was then carried mediolaterally and plantarly, encompassing the toe, leaving a large amount of plantar skin intact. Next the middle and distal phalanx was disarticulated at the interphalangeal joint and removed. The proximal phalanx of the toe was then cut in half using a bone cutter and resected. Next, the proximal remaining portion of bone was sent to pathology. Next the 4th metatarsal head was evaluated and probed with the [place] elevator, it was noted to be white and hard. The proximal margin of the surgical site tissue and the 4th metatarsal head appeared healthy. Attention was then directed to the right foot 3rd digit where there was dry gangrene noted. A number 15 blade was then used to make an incision down to bone in a transverse fashion just proximal to the head of the proximal phalanx. The incision was then carried mediolaterally and plantarly, encompassing the toe, leaving a large amount of plantar skin intact. Next the middle and distal phalanx was disarticulated at the interphalangeal joint and removed. The proximal phalanx of the toe was cut in half using a bone cutter and resected. Next, the proximal remaining portion of the proximal phalanx was sent to pathology. Next the 3rd metatarsal head was evaluated and probed with the [place] elevator, it was noted to be white and hard. The proximal margin of the surgical site tissue and the 3rd metatarsal head appeared healthy. Finally a deep wound culture was taken of the foot. Next the surgical site was copiously flushed with a pulse lavage using bacitracin and normal saline solution. The plantar flap was viable and was folded dorsally and reapproximated carefully with 3-0 nylon suture in simple interrupted fashion. The medial portion of the wound was left open, and packed with iodoform packing. The incision sites were then covered with Betadine soaked Adaptic and sterile compressive dressing such as surgical 4x4s, ABD pad and Kerlix. The tourniquet was then deflated, immediate hyperemia returned to the foot. An Bruce bandage was then finally applied. The patient tolerated the procedure and anesthesia well and left the operating room to go to the recovery room in good condition with all vital signs stable to the feet. The patient was admitted to the PACU and will be discharged back to floor once stable as per anesthesia team. ALEX Barrett/[id number]
== END 2018-03-06 13:00 | disposition home health service (06) | DRG 255 ==
LOC: JER 16:36 → JERBED 18:58 → J5S 02-26 16:11
PROVIDERS: ADMIT Family Medicine; ATTEND Family Medicine
PROC: 0Y6T0Z1 Detachment at Right 3rd Toe, High, Open Approach (ICD-10-PCS; 2018-03-04)
PROC: 0Y6X0Z1 Detachment at Right 5th Toe, High, Open Approach (ICD-10-PCS; principal; 2018-03-04 10:00)
PROC: 0Y6V0Z1 Detachment at Right 4th Toe, High, Open Approach (ICD-10-PCS; 2018-03-04 10:00)
DX: I96 Gangrene, not elsewhere classified (principal); L89.153 Pressure ulcer of sacral region, stage 3; G82.20 Paraplegia, unspecified; N39.0 Urinary tract infection, site not specified; L98.498 Non-pressure chronic ulcer of skin of other sites with other specified severity; Z99.3 Dependence on wheelchair; R39.81 Functional urinary incontinence; E87.6 Hypokalemia; F17.210 Nicotine dependence, cigarettes, uncomplicated; B96.1 Klebsiella pneumoniae [K. pneumoniae] as the cause of diseases classified elsewhere; E87.8 Other disorders of electrolyte and fluid balance, not elsewhere classified
CPT/HCPCS: 36415; 71046-TC-FY; 73630-TC-LT; 73630-TC-RT-FY; 78315-TC; 80048; 80053; 81003; 81015; 82248; 82728; 83540; 83550; 83735; 84100; 84466; 85025; 85610; 85651; 86140; 86850; 86900; 86901; 87040; 87070; 87086; 87186; 87205; 88304-TC; 88311-TC; 93005; 93010; 93306-TC; 94760; 97161-GP; 99285-25; A9503; J1644